=== PATIENT | female | born 2000 | race Caucasian/White ===

== ENCOUNTER 2018-02-19 11:49 | Emergency (ER) | payer BC ==
[2018-02-19 12:24] VITALS: BP 138/81
--- NOTE | 2018-02-19 12:30 | UC ---
General HPI - HPI Summary HPI Summary: Patient complains of being ill for the past 10 days. She states started as a basic head cold so she did not seek treatment; however, over the past few days she reports being much worse she reports sinus headache sinus pressure and congestion. States she's having nasty colored drainage. The postnasal drip is causing her to cough. She has self treated by ", DayQuil, Sudafed and Flonase all of which is not giving her relief. She does have a history of sinusitis and reports that this now feels like sinus infection. - History of Current Complaint Chief Complaint: UCRespiratory Stated Complaint: SINUSES,COLD SXS Time Seen by Provider: 02/19/18 12:15 Hx Obtained From: Patient Hx Last Menstrual Period: 02/18/18 Onset/Duration: Gradual Onset Timing: Constant Pain Intensity: 5 Associated Signs & Symptoms: Positive: Cough, Headache. Negative: Fever - Allergy/Home Medications Allergies/Adverse Reactions: Allergies Allergy/AdvReac Type Severity Reaction Status Date / Time No Known Allergies Allergy Verified 02/19/18 12:17 Home Medications: Home Medications Bcp 1 tab PO DAILY 02/19/18 [History] Dm/PE/Acetaminophen/Doxylamine [Daytime-Nighttime Cold-Flu Liq] 710 ml PO BID PRN 02/19/18 [History Confirmed 02/19/18] Pseudoephedrine TAB* [Sudafed TAB*] 30 mg PO Q4H PRN 02/19/18 [History Confirmed 02/19/18] PMH/Surg Hx/FS Hx/Imm Hx - Additional Past Medical History Additional PMH: SINUSITIS - Surgical History Surgical History: None - Family History Known Family History: Positive: Hypertension - Social History Occupation: Student Lives: Dormitory/Roommates Alcohol Use: Occasionally Substance Use Type: None Smoking Status (MU): Never Smoked Tobacco - Immunization History Hx Tetanus, Diphtheria Vaccination: Yes Vaccination Up to Date: Yes Review of Systems Constitutional: Negative Skin: Negative Eyes: Negative ENT: Nasal Discharge, Sinus Congestion, Sinus Pain/Tenderness Respiratory: Cough Cardiovascular: Negative Gastrointestinal: Negative Genitourinary: Negative Motor: Negative Neurovascular: Negative Musculoskeletal: Negative Neurological: Headache Psychological: Negative Is Patient Immunocompromised?: No All Other Systems Reviewed And Are Negative: Yes Physical Exam Triage Information Reviewed: Yes Appearance: Well-Appearing Vital Signs: Initial Vital Signs Temp 97.8 F 02/19/18 12:19 Pulse 70 02/19/18 12:19 Resp 14 02/19/18 12:19 BP 138/81 02/19/18 12:19 Pulse Ox 100 02/19/18 12:19 Vital Signs Reviewed: Yes Eyes: Positive: Conjunctiva Clear ENT: Positive: Nasal congestion, TMs normal, Sinus tenderness. Negative: Pharynx normal, Nasal drainage Neck: Positive: Supple, Nontender, No Lymphadenopathy Respiratory: Positive: Lungs clear, Normal breath sounds Cardiovascular: Positive: RRR, No Murmur Abdomen Description: Positive: Nontender, No Organomegaly, Soft Bowel Sounds: Positive: Present Musculoskeletal: Positive: ROM Intact Neurological: Positive: Alert Psychological: Positive: Age Appropriate Behavior Skin Exam: Normal Course/Dx - Course Course Of Treatment: Patient is nontoxic but is been ill for the past 10 days with worsening. She has tried multiple [id number] treatments without relief. Going to treat her for bacterial sinusitis - Differential Dx - Multi-Symptom Provider Diagnoses: Sinusitis Discharge - Sign-Out/Discharge Documenting (check all that apply): Patient Departure All imaging exams completed and their final reports reviewed: No Studies - Discharge Plan Condition: Stable Disposition: HOME Prescriptions: Amoxicillin/Clavulanate TAB* [Augmentin TAB 875*] 875 mg PO BID 10 Days #20 tab Patient Education Materials: Sinusitis (ED) Referrals: [facility] [Outside] - 7 Days - Billing Disposition and Condition Condition: STABLE Disposition: Home
== END 2018-02-19 12:35 | disposition home or self-care (01) ==
LOC: UCCORT 11:49
DX: J32.9 Chronic sinusitis, unspecified (principal)
CPT/HCPCS: 99202; G0463